=== PATIENT | female | born 1970 | race Two or more races ===

== ENCOUNTER 2018-03-27 09:38 | Emergency (ER) | payer OTHER ==
[~2018-03-27] VITALS: Ht 157.5 cm; Wt 54.5 kg
[2018-03-27 14:25] VITALS: BP 110/71
== END 2018-03-27 14:26 | disposition home or self-care (01) ==
LOC: ER 10:29
DX: S92.324A Nondisplaced fracture of second metatarsal bone, right foot, initial encounter for closed fracture (principal); S09.8XXA Other specified injuries of head, initial encounter; X58.XXXA Exposure to other specified factors, initial encounter; Y93.89 Activity, other specified; Y92.89 Other specified places as the place of occurrence of the external cause
CPT/HCPCS: 29515; 73630; 81025; 99283